=== PATIENT | female | born 1935 | race Caucasian/White ===

== ENCOUNTER → 2018-03-18 | Outpatient (CLI) | payer MEDICARE, OTHER | LOC: M.ULTRA 09:32 | DX: N30.01 Acute cystitis with hematuria (principal); M85.80 Other specified disorders of bone density and structure, unspecified site ==

== ENCOUNTER → 2018-06-09 | Outpatient (CLI) | payer MEDICARE, OTHER | LOC: M.RAD 08:52 | DX: Z12.31 Encounter for screening mammogram for malignant neoplasm of breast (principal) ==

== ENCOUNTER → 2019-06-14 | Outpatient (CLI) | payer MEDICARE, OTHER | LOC: M.RAD 10:40 | DX: Z12.31 Encounter for screening mammogram for malignant neoplasm of breast (principal) ==

== ENCOUNTER → 2019-09-08 | Outpatient (CLI) | payer MEDICARE, OTHER | LOC: M.CT 07:38 | DX: M47.812 Spondylosis without myelopathy or radiculopathy, cervical region (principal); I67.82 Cerebral ischemia ==

== ENCOUNTER → 2019-10-13 | Outpatient (CLI) | payer MEDICARE, OTHER | LOC: M.ULTRA 07:52 | DX: E04.2 Nontoxic multinodular goiter (principal) ==

== ENCOUNTER → 2019-11-04 | Outpatient (CLI) | payer MEDICARE, OTHER ==
--- NOTE | 2019-11-09 13:08 | PATH ---
[address] [address] PATHOLOGY RPT PROCEDURE Name: MAGAN VIZCAINO Tony Room: [facility]#: [id number] Admission: 11/04/19 Date of : 39 Discharge: Report #: [id number] Path Case #: [id number] Note [facility] Accession Number: [id number] TESTS RESULT FLAG UNITS REF RANGE LAB Clinician Provided Cytology Information No. of containers..01 Other (Miscellaneous) Source: [A] 01 LT THYROID NODULE DIAGNOSIS: [A] 02 LT THYROID NODULE BETHESDA CATEGORY III. ATYPIA OF UNDETERMINED SIGNIFICANCE. LOW CELLULAR SPECIMEN WITH FOLLICULAR CELLS INCLUDING ONE GROUP WITH ATYPIA. SEE COMMENT. COMMENT: A retained RNA specimen will be submitted, the results of which will be the subject of a separate report. (DIOR/db; 11/07/2019) Pathologist ICD10: 02 R89.6 Signed out by: 02 Perez Jesus MD, Pathologist NPI- [id number] Performed by: Bert Reddy, Driver Wheelchair ([facility]) Gross description: 23 ML, RED/CLEAR, 8FXD /LCS 11/07/2019 1445 Local FLAG LEGEND: L-Low Normal,H-High Normal,LL-Alert Low,HH-Alert High <-Panic Low,>-Panic High,A-Abnormal,AA-Critical Abnormal Performed at: [address] [place] [address] Adams Rogers MD, [address] [place] [phone] Perez Jesus MD, Specimen Comment: A courtesy copy of this report has been sent to [phone] Specimen Comment: [id number] Specimen Comment: Report sent to Specimen Comment: A duplicate report has been generated due to demographic updates. Performed at: 01 [facility] [address] [place] [address] PATHOLOGY RPT PROCEDURE Name: MAGAN VIZCAINO Room: [facility]#: [id number] Admission: 11/04/19 Date of : 39 Discharge: Report #: [id number] Path Case #: [id number] [address] [facility] [address], [place], [place] [id number] MD Adams Rogers MD Phone: [phone]
--- NOTE | 2019-11-10 11:08 | PATH ---
[address] [address] PATHOLOGY RPT PROCEDURE Name: MAGAN VIZCAINO Room: [facility]#: [id number] Admission: 11/04/19 Date of : 39 Discharge: Report #: [id number] Path Case #: [id number] Note [facility] Accession Number: [id number] TESTS RESULT FLAG UNITS REF RANGE LAB Clinician Provided Cytology Information No. of containers..01 Other (Miscellaneous) Source: RT THYROID NODULE DIAGNOSIS: 02 RT THYROID NODULE NEGATIVE FOR MALIGNANT CELLS. BETHESDA CATEGORY II. SPECIMEN CONSISTS OF ABUNDANT BENIGN FOLLICULAR CELLS, HEMOSIDERIN-LADEN MACROPHAGES, SCANT COLLOID AND BLOOD. THE PATTERN IS CONSISTENT WITH ADENOMATOID NODULE. THIS INTERPRETATION INCLUDES EVALUATION OF A CELL BLOCK. Pathologist ICD10: 02 E04.1 Amended report: 01 This is an amended report due to a clerical error. There is no change in the diagnosis. Report was incorrectly signed out by the wrong pathologist. Signed out by: 02 Perez Jesus MD, Pathologist NPI- [id number] Performed by: Christopher Ewing, Spout Liner ([facility]) Gross description: 01 10 ML, RED/CLEAR, 4FX 4AD /LCS 11/04/2019 1703 Local FLAG LEGEND: L-Low Normal,H-High Normal,LL-Alert Low,HH-Alert High <-Panic Low,>-Panic High,A-Abnormal,AA-Critical Abnormal Performed at: [address] [place] [address] Adams Rogers MD, [address] [place] [address] [address] [place] [address] Perez Jesus MD, Specimen Comment: [id number] Performed at: [address], [place], [place] [id number] MD Adams Rogers MD Phone: [phone]
== END | disposition home or self-care (01) ==
LOC: M.ULTRA 07:43
DX: E04.1 Nontoxic single thyroid nodule (principal); R89.6 Abnormal cytological findings in specimens from other organs, systems and tissues; Z98.890 Other specified postprocedural states